=== PATIENT | female | born 1985 | race Caucasian/White ===

== ENCOUNTER 2016-08-10 18:59 | Emergency (ER) ==
[2016-08-10 19:10] VITALS: BP 120/80; TEMP 97.9; BMI 22.6
[2016-08-10] MEDS ORDERED: TORADOL IM STA (19:37)
[2016-08-10] MEDS ORDERED: ZOFRAN 4 MG/2 ML IM STA (19:37)
--- NOTE | 2016-08-10 19:40 | ED.PDOC ---
General ED Provider: Dr. JENNIFER THOMAS Chief Complaint: Nausea/Vomiting Stated Complaint: voming, diarrhea for 2 days not able to keep anything down. no fever or chills. Time Seen by Physician: 19:38 Mode of Arrival: Walk-In Information Source: Patient Primary Care Provider: JENNIFER THOMAS-[facility] Nursing and Triage Documentation Reviewed and Agree: Yes GI Complaint Exam - Vomiting/Diarrhea Complaint/Exam Symptoms Are: Still present Episodes of Vomiting over last 24 Hours: 4 Episodes of Diarrhea Over Last 24 Hours: 4 Initial Severity: Moderate Current Severity: Moderate Character of Vomiting: Reports: Non-bilious Character of Diarrhea: Reports: Watery Aggravating: Reports: Food, Liquids, Position Alleviating: Reports: Clear liquids Associated Signs and Symptoms: Reports: Light-headedness. Denies: Dizziness, Melena, Hematemesis, Fever, Abdominal pain, Cramping Recent Positive Test: No Use of Oral Contraceptives: No Use of Depoprovera: No Compliant With Contraceptive Use: No Non-GI Risk Factors: Reports: None Surgical Obstruction Risk Factors: Reports: None Related Surgical History: Reports: None Abdominal Findings: Absent: Pulsatile mass, Abdominal distention, Unequal femoral pulses, Rebound tenderness Differential Diagnoses: Viral Gastroenteritis, Bacterial Gastroenteritis, Pancreatitis, UTI Review of Systems - Review Of Systems Constitutional: Reports: Malaise, Weakness Eyes: Reports: No symptoms Ears, Nose, Mouth, Throat: Reports: No symptoms Respiratory: Reports: No symptoms Cardiac: Reports: No symptoms GI: Reports: Abdominal pain, Diarrhea, Nausea, Vomiting : Reports: No symptoms Musculoskeletal: Reports: No symptoms Skin: Reports: No symptoms Neurological: Reports: No symptoms Endocrine: Reports: No symptoms Hematologic/Lymphatic: Reports: No symptoms All Other Systems: Reviewed and Negative Past Medical History - Past Medical History Previously Healthy: No Endocrine: Reports: Unknown Cardiovascular: Reports: Unknown Respiratory: Reports: Unknown Hematological: Reports: Unknown Gastrointestinal: Reports: Unknown Genitourinary: Reports: Unknown Neuro/Psych: Reports: Unknown Musculoskeletal: Reports: Other (CHRONIC MILD PAIN SINCE 16 YO. TIGHT PAIN NECK INTO HEAD. SPINAL STENOSIS BULGING DISCS C4 AND C7. 12/09/14) Cancer: Reports: Unknown Last Menstrual Period: 1 month ago - Surgical History General Surgical History: Reports: Tubal ligation - Family History Family History: Reports: Unknown - Social History Smoking Status: Current every day smoker, Heavy tobacco smoker Smoking Cessation Counseling Time: > 3 min - 10 min Hx Substance Use: No Alcohol Screening: None Physical Exam - Physical Exam Appearance: Ill-appearing, Thin Ill-appearing: Mild Eyes: EOMI ENT: Ears normal, Nose normal, Oropharynx normal Respiratory: Airway patent, Breath sounds clear, Breath sounds equal, Respirations nonlabored Cardiovascular: RRR, Pulses normal, No rub, No murmur GI/: Soft, Tender Musculoskeletal: Normal strength, ROM intact, No edema, No calf tenderness Skin: Warm, Dry, Normal color Neurological: Sensation intact, Motor intact, Reflexes intact, Cranial nerves intact, Alert, Oriented Psychiatric: Affect appropriate, Mood appropriate Interpretation - Radiology Interpretation Radiology Interpretation By: Radiologist Radiology Results: Negative Exam Interpreted: CT Scan Critical Care Note - Critical Care Note Total Time (mins): 0 Course - Course Hematology/Chemistry: 08/10/16 19:48 08/10/16 19:48 Orders, Labs, Meds: Lab Review 08/10/16 08/10/16 19:40 19:48 WBC 10.09 RBC 3.91 L Hgb 13.0 Hct 37.1 MCV 94.9 MCH 33.2 H MCHC 35.0 RDW Coeff of Kacie 12.7 Plt Count 307 Immature Gran % (Auto) 0.3 Neut % (Auto) 59.8 Lymph % (Auto) 29.5 [place] % (Auto) 6.6 Eos % (Auto) 3.2 Baso % (Auto) 0.6 Immature Gran # (Auto) 0.0 Neut # 6.0 Lymph # 3.0 Barber # 0.7 Eos # 0.3 Baso # 0.1 Sodium 139 Potassium 4.2 Chloride 103 Carbon Dioxide 29 Anion Gap 11.2 BUN 12 Creatinine 0.75 Estimated GFR (MDRD) 90.00 BUN/Creatinine Ratio 16.00 Glucose 76 Calcium 9.0 Total Bilirubin 0.48 AST 17 ALT 15 Alkaline Phosphatase 57 Total Protein 6.8 Albumin 4.2 Globulin 2.6 Albumin/Globulin Ratio 1.62 Amylase 87 Lipase 25 Urine Color Yellow Urine Clarity Slightly Urine pH 7.0 Ur Specific [place] 1.015 Urine Protein Negative Urine Glucose (UA) Negative Urine Ketones Negative Urine Blood Negative Urine Nitrite Negative Urine Bilirubin Negative Urine Urobilinogen 1.0 Ur Leukocyte Esterase Negative Ur Squamous Epith Cells 10-20 Amorphous Sediment Trace Urine Bacteria Trace Urine Test Negative Orders Category Date Time Status AMYLASE Stat LAB 08/10/16 19:48 Completed CBC W/ AUTO DIFF Stat LAB 08/10/16 19:48 Completed COMPREHENSIVE METABOLIC PANEL Stat LAB 08/10/16 19:48 Completed LIPASE Stat LAB 08/10/16 19:48 Completed URINALYSIS C & S IF INDICATED Stat LAB 08/10/16 19:40 Completed URINE Stat LAB 08/10/16 19:40 Completed Ketorolac Tromethamine [Toradol] MEDS 08/10/16 19:37 Discontinued 30 mg IM ONCE STA Ondansetron HCl/Pf [Zofran 4 mg/2 ml] MEDS 08/10/16 19:37 Discontinued 4 mg IM ONCE STA CT ABDOMEN/PELVIS WO CONTRAST Stat RADS 08/10/16 19:37 Completed Medications Discontinued Medications Generic Name Dose Route Start Last Admin Trade Name Freq PRN Reason Stop Dose Admin Ketorolac Tromethamine 30 mg 08/10/16 19:37 08/10/16 19:52 Toradol IM 08/10/16 19:38 30 mg ONCE STA Administration Ondansetron HCl 4 mg 08/10/16 19:37 08/10/16 19:54 Zofran 4 Mg/2 Ml IM 08/10/16 19:38 4 mg ONCE STA Administration Vital Signs: Temp Pulse Resp BP Pulse Ox 08/10/16 18:59 97.9 F 78 20 120/80 98 Departure - Departure Time of Disposition: 21:21 Disposition: HOME SELF-CARE Discharge Problem: Gastroenteritis Instructions: Gastroenteritis (ED) Condition: Stable Pt referred to PMD for follow-up: Yes Additional Instructions: increase hydration soft diet for 3-4 days quite smoking, ASVD discussed ASA 81 po daily with food Prescriptions: Ondansetron HCl [Zofran] 4 mg PO TID #14 tablet Allergies/Adverse Reactions: Allergies Penicillins Adverse Reaction (Verified 08/10/16 19:04) THROAT SWELLS/HIVES Home Medications: Ambulatory Orders Hydrocodone Bit/Acetaminophen [[place] 7.5-325] 1 tab PO BID 02/16/16 Tizanidine HCl 4 mg PO DAILY PRN 02/16/16 Ondansetron HCl [Zofran] 4 mg PO TID #14 tablet 08/10/16 Disposition Discussed With: Patient
[2016-08-10 19:51] LABS: BASOPHILS # (AUTO) 0.1 K/uL (0-0.2); BASOPHILS % (AUTO) 0.6 % (0.0-3.0); EOSINOPHILS # (AUTO) 0.3 K/ul (0.0-0.7); EOSINOPHILS % (AUTO) 3.2 % (0.0-7.0); HEMATOCRIT 37.1 % (37.0-47.0); IMMATURE GRANULOCYTE % (AUTO) 0.3 % (0.0-5.0); LYMPHOCYTES % (AUTO) 29.5 (10.0-50.0); MEAN CORPUSCULAR HEMOGLOBIN 33.2 pg (27.0-31.0); MEAN CORPUSCULAR VOLUME 94.9 fl (81.0-99.0); MONOCYTES # (AUTO) 0.7 K/uL (0.4-2.0); MONOCYTES % (AUTO) 6.6 (0-10); NEUTROPHILS % (AUTO) 59.8; PLATELET COUNT 307 10^3/uL (140-440); RED BLOOD COUNT 3.91 10^6/ul (4.20-5.40); WHITE BLOOD COUNT 10.09 K/ul (4.6-10.2)
[2016-08-10 19:56] LABS: BILIRUBIN,URINE Negative (NEGATIVE); KETONES,URINE Negative (NEGATIVE); LEUKOCYTE ESTERASE ,URINE Negative (NEGATIVE); NITRITE,URINE Negative (NEGATIVE); PROTEIN,URINE Negative (NEGATIVE); URINE, BLOOD Negative (NEGATIVE)
[2016-08-10 19:57] LABS: URINE PREGNANCY INTERNAL QC INTERNAL QC VALID
[2016-08-10 20:03] LABS: ADD URINE MICROSCOPIC YES; BACTERIA,URINE TRACE (NOT PRESENT)
[2016-08-10 20:10] LABS: ALBUMIN 4.2 g/dL (3.4-5.0); ALBUMIN/GLOBULIN RATIO 1.62; ANION GAP 11.2; BILIRUBIN,TOTAL 0.48 mg/dL (0.00-1.20); CREATININE 0.75 mg/dL (0.60-1.30); POTASSIUM 4.2 mmol/L (3.5-5.10); TOTAL PROTEIN 6.8 g/dL (6.4-8.2)
--- NOTE | 2016-08-10 21:17 | CT ---
EXAM: CT abdomen pelvis without contrast TECHNIQUE: Helical axial CT of the abdomen pelvis was performed without contrast with coronal and s agittal reconstructions. COMPARISON: CT pelvis from 03/11/2014 HISTORY: Epigastric pain and nausea vomiting FINDINGS: There is no acute abnormality in the abdomen or pelvis. Specifically there is no free ai r free fluid or bowel wall thickening or edema or obstruction or ileus or pathologic lymph nodes. T here is a trace amount of physiologic free fluid in the pelvis. Also noted is some calcific atheros clerosis of the aorta. This is new compared to the previous CT. The liver, spleen, kidneys, pancreas , adrenal glands and lung bases are unremarkable. There is prior Toradol ejection seen in the right gluteal area. There is no acute osseous abnormality. Uterus and adnexa are unremarkable. IMPRESSION: 1. No acute abnormality in the abdomen or pelvis. 2. Trace amount of physiologic free fluid in the pelvis. 3. Calcific atherosclerosis of the aorta which is unexpected in a patient this age. Report called to Dr. Chino
== END 2016-08-10 21:30 | disposition home or self-care (01) ==
LOC: ED 18:59
DX: K52.9 Noninfective gastroenteritis and colitis, unspecified (principal); F17.210 Nicotine dependence, cigarettes, uncomplicated
CPT/HCPCS: 36415; 80053; 81001; 81025; 82150; 83690; 85025; 96372; 99283

== ENCOUNTER 2016-08-24 12:41 | Outpatient (CLI) ==
[2012-10-20 19:32] VITALS: TEMP 98.6
== END 2016-08-24 12:42 | disposition home or self-care (01) ==
LOC: LAB 12:41
PROVIDERS: ATTEND Emergency Medicine
DX: Z00.00 Encounter for general adult medical examination without abnormal findings (principal); E52 Niacin deficiency [pellagra]; I70.90 Unspecified atherosclerosis
CPT/HCPCS: 36415; 82607

== ENCOUNTER 2017-02-05 08:58 | Emergency (ER) ==
[2017-02-05 09:05] VITALS: BP 128/86; TEMP 97.5; BMI 21.4
--- NOTE | 2017-02-05 09:28 | ED.PDOC ---
General ED Provider: Dr. JENNIFER THOMAS Chief Complaint: Psychiatric Complaint Stated Complaint: Patient been more anxious, as she is trying to quite smoking, last time she did it, she was given some xanax to help quite smoking. \ Time Seen by Physician: 09:26 Mode of Arrival: Walk-In Information Source: Patient Primary Care Provider: JENNIFER THOMAS-[facility] Nursing and Triage Documentation Reviewed and Agree: Yes Psychological Complaint Exam - Psychiatric Complaint/Exam Patient Complains Of: Present: Other (ANXIETY) Symptoms Are: Still present Timing: Constant Initial Severity: Moderate Current Severity: Moderate Character: Present: Anxious, Frustrated Aggravating: Reports: None Associated Signs And Symptoms: Denies: Hostile, Confused, Hallucinating, Paranoid behavior, Sleep disturbance, Appetite change Completed Suicide Risk Factors: None Patient In Custody Of Police: No Social Withdrawal Present: No Social Isolation Present: No Prior Suicide Attempt: No Injury From Prior Suicide Attempt: No Related Surgical History: Reports: None Patient Uncooperative For Exam: No Mood: Present: Anxious Appearance: Present: Clean Thought Process: Present: Logical Insight: Present: Good Memory: Intact Judgement: Normal Danger To Others: No Differential Diagnoses: Anxiety Review of Systems - Review Of Systems Constitutional: Reports: No symptoms Eyes: Reports: No symptoms Ears, Nose, Mouth, Throat: Reports: No symptoms Respiratory: Reports: No symptoms Cardiac: Reports: No symptoms GI: Reports: No symptoms : Reports: No symptoms Musculoskeletal: Reports: No symptoms Skin: Reports: No symptoms Neurological: Reports: Anxiety Endocrine: Reports: No symptoms Hematologic/Lymphatic: Reports: No symptoms All Other Systems: Reviewed and Negative Past Medical History - Past Medical History Previously Healthy: Yes Endocrine: Reports: Unknown Cardiovascular: Reports: Unknown Respiratory: Reports: Unknown Hematological: Reports: Unknown Gastrointestinal: Reports: Unknown Genitourinary: Reports: Unknown Neuro/Psych: Reports: Unknown Musculoskeletal: Reports: Other (CHRONIC MILD PAIN SINCE 16 YO. TIGHT PAIN NECK INTO HEAD. SPINAL STENOSIS BULGING DISCS C4 AND C7. 12/09/14) Cancer: Reports: Unknown Last Menstrual Period: 3 weeks - Surgical History General Surgical History: Reports: Tubal ligation - Family History Family History: Reports: Unknown - Social History Smoking Status: Current every day smoker, Heavy tobacco smoker Smoking Cessation Counseling Time: > 10 min Hx Substance Use: No Alcohol Screening: None Physical Exam - Physical Exam Appearance: Well-appearing, No pain distress, Well-nourished Eyes: LULA, EOMI, Conjunctiva clear ENT: Ears normal, Nose normal, Oropharynx normal Respiratory: Airway patent, Breath sounds clear, Breath sounds equal, Respirations nonlabored Cardiovascular: RRR, Pulses normal, No rub, No murmur GI/: Soft, Nontender, No masses, Bowel sounds normal, No Organomegaly Musculoskeletal: Normal strength, ROM intact, No edema, No calf tenderness Skin: Warm, Dry, Normal color Neurological: Sensation intact, Motor intact, Reflexes intact, Cranial nerves intact, Alert, Oriented Psychiatric: Affect appropriate, Mood appropriate Critical Care Note - Critical Care Note Total Time (mins): 0 Course - Course Vital Signs: Temp Pulse Resp BP Pulse Ox 02/05/17 08:59 97.5 F L 99 H 20 128/86 98 Departure - Departure Time of Disposition: 09:28 Disposition: HOME SELF-CARE Discharge Problem: KOTA (generalized anxiety disorder) Instructions: Generalized Anxiety Disorder (ED) Condition: Good Pt referred to PMD for follow-up: Yes Additional Instructions: patient really wants to quite, worried about the arteries.( ASVD) Prescriptions: Alprazolam [Xanax] 0.25 mg PO BID #20 tablet Allergies/Adverse Reactions: Allergies Penicillins Adverse Reaction (Verified 02/05/17 09:05) THROAT SWELLS/HIVES Home Medications: Ambulatory Orders Hydrocodone Bit/Acetaminophen [[place] 7.5-325] 1 tab PO BID 02/16/16 Tizanidine HCl 4 mg PO DAILY PRN 02/16/16 Alprazolam [Xanax] 0.25 mg PO BID #20 tablet 02/05/17 Disposition Discussed With: Patient
== END 2017-02-05 09:45 | disposition home or self-care (01) ==
LOC: ED 08:58
DX: F41.1 Generalized anxiety disorder (principal); F17.210 Nicotine dependence, cigarettes, uncomplicated
CPT/HCPCS: 99283

== ENCOUNTER 2017-05-19 14:38 | Outpatient (CLI) ==
[2012-10-20 19:32] VITALS: TEMP 98.6
== END 2017-05-19 14:39 | disposition home or self-care (01) ==
LOC: LAB 14:38
PROVIDERS: ATTEND Emergency Medicine
DX: J06.9 Acute upper respiratory infection, unspecified (principal)
CPT/HCPCS: 87502; 87651

== ENCOUNTER 2017-11-19 04:01 | Emergency (ER) ==
[2017-11-19 04:14] VITALS: BP 141/94; TEMP 98.5; BMI 20.8
--- NOTE | 2017-11-19 04:42 | ED.PDOC ---
General ED Provider: Dr. JENNIFER THOMAS Chief Complaint: Neck Pain Non-Injury Stated Complaint: Patient goes to the pain management for the chronic neck pain , she does not thick she got the script fro october, she is hurting 11/22 not able to see. IPM checked it shows she got the refill on 11-02-17 Time Seen by Physician: 04:40 Mode of Arrival: Walk-In Information Source: Patient Primary Care Provider: JENNIFER THOMAS-[facility] Nursing and Triage Documentation Reviewed and Agree: Yes Does patient meet sepsis criteria?: No If yes, has appropriate treatment been initiated?: No System Inflammatory Response Syndrome: Not Applicable Sepsis Protocol: For patient's 13 years and over: Temp is 96.8 and below OR 101 and greater Pulse >90 BPM Resp >20/minute Acutely Altered Mental Status Are patient's symptoms suggestive of a new infection, such as: -Pneumonia -Skin, Soft Tissue -Endocarditis -UTI -Bone, Joint Infection -Implantable Device -Acute Abdominal Infection -Wound Infection -Meningitis -Blood Stream Catheter Infection -Unknown Musculoskeletal Complaint Exam - Neck Pain Complaint/Exam Mechanism of Injury: Reports: No known trauma Symptoms Are: Still present Timing: Constant Episodes Lasting: Minutes Initial Severity: Moderate Current Severity: Moderate Location: Reports: Discrete Character: Reports: Dull, Aching, Throbbing Aggravating: Reports: Movement Alleviating: Reports: None Associated Signs and Symptoms: Denies: Swelling, Redness, Bruising, Fever, Nuchal rigidity, Weakness, Headache, Paresthesia Related History: Reports: Similar episode Meningitis Risk Factors: Reports: None Cervical Spine Injury Risk Factors: Reports: None Related Surgical History: Reports: None Carotid Bruit Present: No Pain on Passive Flexion: No Positive Kernig's Sign: No ROM Limited In: Present: Flexion, Extension, Right, Left, Side bending Tenderness: Present: Midline, Paraspinal Focal Weakness: Present: None Focal Sensory Loss: Reports: None Differential Diagnoses: Arthritis, Sprain Review of Systems - Review Of Systems Constitutional: Reports: No symptoms Eyes: Reports: No symptoms Ears, Nose, Mouth, Throat: Reports: No symptoms Respiratory: Reports: No symptoms Cardiac: Reports: No symptoms GI: Reports: No symptoms : Reports: No symptoms Musculoskeletal: Reports: Back pain, Muscle pain, Neck pain Skin: Reports: No symptoms Neurological: Reports: No symptoms Endocrine: Reports: No symptoms Hematologic/Lymphatic: Reports: No symptoms All Other Systems: Reviewed and Negative Past Medical History - Past Medical History Previously Healthy: Yes Endocrine: Reports: Unknown Cardiovascular: Reports: Unknown Respiratory: Reports: Unknown Hematological: Reports: Unknown Gastrointestinal: Reports: Unknown Genitourinary: Reports: Unknown Neuro/Psych: Reports: Unknown Musculoskeletal: Reports: Joint Pain, Other (CHRONIC MILD PAIN SINCE 16 YO. TIGHT PAIN NECK INTO HEAD. SPINAL STENOSIS BULGING DISCS C4 AND C7. 12/09/14) Cancer: Reports: Unknown Last Menstrual Period: 10/23/17 - Surgical History General Surgical History: Reports: Tubal ligation - Family History Family History: Reports: Unknown - Social History Smoking Status: Current every day smoker, Heavy tobacco smoker Smoking Cessation Counseling Time: > 3 min - 10 min Hx Substance Use: No Alcohol Screening: None - Immunizations Tetanus Shot up to Date: Yes Physical Exam - Physical Exam Appearance: Well-appearing, No pain distress, Well-nourished Eyes: LULA, EOMI, Conjunctiva clear ENT: Ears normal, Nose normal, Oropharynx normal Respiratory: Airway patent, Breath sounds clear, Breath sounds equal, Respirations nonlabored Cardiovascular: RRR, Pulses normal, No rub, No murmur GI/: Soft, Nontender, No masses, Bowel sounds normal, No Organomegaly Musculoskeletal: Normal strength, ROM intact, No edema, No calf tenderness Skin: Warm, Dry, Normal color Neurological: Sensation intact, Motor intact, Reflexes intact, Cranial nerves intact, Alert, Oriented Psychiatric: Affect appropriate, Mood appropriate Critical Care Note - Critical Care Note Total Time (mins): 30 Course - Course Vital Signs: Temp Pulse Resp BP Pulse Ox 11/19/17 04:03 98.5 F 82 18 141/94 H 99 Departure - Departure Time of Disposition: 04:42 Disposition: HOME SELF-CARE Discharge Problem: Neck pain Instructions: Cervical Strain (ED), Chronic Neck Pain (DC) Condition: Stable Pt referred to PMD for follow-up: Yes IPMP verified?: Yes Additional Instructions: IPM, checked It showed patient had refill on 11/02/17 please keep f/u with Pain management Allergies/Adverse Reactions: Allergies Penicillins Adverse Reaction (Verified 11/19/17 04:11) THROAT SWELLS/HIVES Home Medications: Ambulatory Orders 1 [No Reported Medications] 11/19/17 Disposition Discussed With: Patient
== END 2017-11-19 05:01 | disposition home or self-care (01) ==
LOC: ED 04:01
DX: M54.2 Cervicalgia (principal); G89.29 Other chronic pain; F17.210 Nicotine dependence, cigarettes, uncomplicated
CPT/HCPCS: 99282